=== PATIENT | female | born 1940 | race Caucasian/White ===

== ENCOUNTER 2018-01-09 08:55 | Emergency (ER) | payer MEDICARE ==
[~2018-01-09] VITALS: Ht 157.5 cm; Wt 97.1 kg
[~2018-01-09 08:55] MED LIST: INDOMETHACIN50 MG PO; SYNTHROID88 MCG PO
[2018-01-09] MEDS ORDERED: ONDANSETRON HCL INJ 2 MG/ML VIAL IV STA (09:09)
[2018-01-09] MEDS ORDERED: SODIUM CHLORIDE 0.9% 1000ML 1,000 ML IV SCH (09:15)
[2018-01-09 09:20] LABS: BASOPHILS % 0.2 % (0.0-1.0); EOSINOPHILS # (AUTO) 0.1 (0.0-0.4); EOSINOPHILS % 0.7 % (0.0-6.0); HEMATOCRIT 38.5 % (34.2-44.1); HEMOGLOBIN 13.3 g/dL (12.0-16.0); LYMPHOCYTES % 8.1 % (18.0-39.1); MEAN CORPUSCULAR HEMOGLOBIN 29.3 pg (28-32); MEAN CORPUSCULAR HGB CONC 34.5 g/dL (31-35); MEAN CORPUSCULAR VOLUME 84.8 fL (81-99); MONOCYTES % 8.1 % (4.4-11.3); NEUTROPHILS # (AUTO) 10.3 (2.1-6.9); NEUTROPHILS % 82.3 % (38.7-80.0); PLATELET COUNT 476 x10e3/uL (140-360); RED BLOOD COUNT 4.54 x10e6/uL (3.6-5.1); RED CELL DISTRIBUTION WIDTH 11.8 % (11.7-14.4)
[2018-01-09 09:46] LABS: ALBUMIN 3.3 g/dL (3.5-5.0); ALBUMIN/GLOBULIN RATIO 0.8 (0.8-2.0); ANION GAP 17.5 mmol/L (8-16); CALCIUM 9.7 mg/dL (8.4-10.2); CREATININE, SERUM 1.76 mg/dL (0.57-1.11); POTASSIUM 3.5 mmol/L (3.5-5.1)
[2018-01-09 10:21] LABS: CLARITY,URINE SL CLOUDY (CLEAR); COLOR,URINE YELLOW (YELLOW); LEUKOCYTE ESTERASE ,URINE TRACE (NEGATIVE); NITRITE,URINE NEGATIVE (NEGATIVE); PROTEIN,URINE DIPSTICK 1+ (NEGATIVE)
[2018-01-09 10:22] LABS: BILIRUBIN,URINE 1+ (NEGATIVE); KETONES,URINE NEGATIVE (NEGATIVE); URINE UROBILINOGEN 0.2 mg/dL (0.2 - 1)
[2018-01-09 10:42] LABS: BACTERIA,URINE MODERATE /HPF; RBC,URINE 0-5 /HPF (0-5)
[2018-01-09 10:43] LABS: EPITHELIAL CELLS,URINE FEW /LPF; TRANSITIONAL EPI CELLS,URINE FEW
[2018-01-09 10:44] LABS: MUCUS,URINE FEW (RARE)
[2018-01-09 11:51] VITALS: BP 146/49
== END 2018-01-09 12:05 | disposition home or self-care (01) ==
LOC: ER 08:55
DX: R19.7 Diarrhea, unspecified (principal); R11.0 Nausea; R10.9 Unspecified abdominal pain; N30.90 Cystitis, unspecified without hematuria; E03.9 Hypothyroidism, unspecified; K51.90 Ulcerative colitis, unspecified, without complications
CPT/HCPCS: 36415; 80053; 81001; 82550; 82553; 83605; 83690; 84443; 84484; 85025; 93005; 99284; J2405; J7030

== ENCOUNTER → 2018-04-30 | Day surgery (SDC) | payer MEDICARE ==
[~2018-04-30] MED LIST changes: +APRISO0.375 GM PO; +ASPIR 8181 MG PO; +FENTANYL CITRATE/PF 100MCG/2 ML INJ ONE; +HYOSCYAMINE SULFATE 0.5 MG/ML INJ ONE; +MIDAZOLAM HCL 2 MG/2 ML VIAL ONE; +PROPOFOL IV EMULSION 10 MG/ML 50 ML VIAL ONE
--- OUTSIDE RECORDS SUMMARY | 2018-04-30 06:58 | XMS REPORT | Clinical Summary ---
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 wednesdays01/17/2018 Discontinued levothyroxine (SYNTHROID, Take 75 mcg 0 LEVOXYL) 75 mcg tablet by mouth every morning. 04/17/2018 gabapentin (NEURONTIN) Take 1 90 capsule 2 100 mg capsule capsule (100 8 mg total) by mouth 3 (three) times a day for 90 days. 02/16/2018 promethazine (PHENERGAN) Take 1 tablet 30 tablet 0 12.5 MG tablet (12.5 mg 8 total) by mouth every 6 (six) hours as needed for nausea or vomiting for up to 30 days. 01/23/2018 valACYclovir (VALTREX) Take 1 tablet 12 tablet 0 1000 MG tablet (1,000 mg 8 total) by mouth 2 (two) times a day for 6 days. 01/24/2018 HYDROcodone-acetaminophen Take 1 tablet 20 tablet 0 (NORCO) 5-325 mg per by mouth 8 tablet every 6 (six) hours as needed for severe pain for up to 7 days. Max Daily Amount: 4 tablets 02/17/2018 aspirin (ECOTRIN) 81 MG Take 1 tablet 30 tablet 0 enteric coated tablet (81 mg total) 8 by mouth daily for 30 days. 04/17/2018 pantoprazole (PROTONIX) Take 1 tablet 60 tablet 2 40 MG EC tablet (40 mg total) 8 by mouth 2 (two) times a day for 90 days. 04/18/2018 levothyroxine (SYNTHROID, Take 1 tablet 30 tablet 2 LEVOXYL) 75 mcg tablet (75 mcg 8 total) by mouth every morning for 90 days. 02/02/2018 amoxicillin (AMOXIL) 500 Take 2 56 capsule 0 MG capsuleIndications: capsules 8 Helicobacter pylori (H. (1,000 mg pylori) infection total) by mouth 2 (two) times a day for 14 days. 02/02/2018 clarithromycin (BIAXIN) Take 1 tablet 28 tablet 0 500 MG tabletIndications: (500 mg 8 Helicobacter pylori (H. total) by pylori) infection mouth 2 (two) times a day for 14 days. 02/16/2018 omeprazole (PriLOSEC) 20 Take 1 28 capsule 0 MG capsuleIndications: capsule (20 8 Helicobacter pylori (H. mg total) by pylori) infection mouth daily for 28 days. Active Problems Problem Noted Date Chest pain 01/15/2018 Encounters Care Team Description Date Type Specialty Mickie Farley MA 02/18/2018 Telephone Gastroenterology Rodriguez Perez MD Ulcerative colitis with complication, unspecified location 02/12/2018 Hospital Radiology Encounter Rodriguez Perez MD Ulcerative colitis with complication, unspecified location (Primary Dx) 02/10/2018 Office Visit Gastroenterology Thien Mercado MD Renal pain 02/02/2018 Hospital Radiology Encounter Thien Mercado MD Renal pain (Primary Dx) 01/27/2018 Transcribe Access Orders Zeyad Burrows, Acute renal insufficiency (Primary Dx); Dehydration 01/26/2018 Emergency Emergency Medicine - 01/27/2018 Lenore Gibson LPN 01/22/2018 Telephone Gastroenterology Vj Page MA Helicobacter pylori (H. pylori) infection (Primary Dx) 01/19/2018 Telephone Gastroenterology Von Huggins MD 01/16/2018 Anesthesia Gastroenterology Event Rodriguez Perez MD EGD WITH BIOPSY 01/16/2018 Surgery Gastroenterology Edna Booker MD Bui, Mar Elias MD Chest pain, unspecified type (Primary Dx); Herpes zoster with complication; Diarrhea, unspecified type; Herpes zoster without complication 01/15/2018 Emergency General Surgery - 01/17/2018 after 04/29/2017 Family History Medical History Relation Name Comments No Known Problems Father No Known Problems Mother Relation Name Status Comments Father Mother Social History Date Tobacco Use Types Packs/Day Years Used Never Smoker Smokeless Tobacco: Never Used Alcohol Use Drinks/Week oz/Week Comments No Sex Assigned at Date Recorded Not on file Industry Job Start Date Occupation Not on file Not on file Not on file Travel End Travel History Travel Start No recent travel history available. Last Filed Vital Signs Time Taken Vital Sign Reading 02/10/2018 3:42 PM CDT Blood Pressure 136/82 02/10/2018 3:42 PM CDT Pulse 91 02/10/2018 3:42 PM CDT Temperature 36.8 C (98.2 F) 02/10/2018 3:42 PM CDT Respiratory Rate 12 01/27/2018 1:00 AM CDT Oxygen Saturation 96% - Inhaled Oxygen - Concentration 02/10/2018 3:42 PM CDT Weight 84.9 kg (187 lb 3.2 oz) 02/10/2018 3:42 PM CDT Height 157.5 cm (5' 2") 02/10/2018 3:42 PM CDT Body Mass Index 34.24 Plan of Treatment Health Maintenance Due Date Last Done Comments SHINGRIX VACCINE (1 of 2) 12/27/1991 ZOSTER VACCINE 2001 PNEUMOCOCCAL 2006 POLYSACCHARIDE VACCINE AGE 65 AND OVER PNEUMOCOCCAL-13 2006 INFLUENZA VACCINE 01/14/2018 Procedures Comments Procedure Name Priority Date/Time Associated Diagnosis CT ABDOMEN PELVIS WO Routine 02/02/2018 Renal pain CONTRAST 9:59 AM CDT URINALYSIS SCREEN AND Routine 01/26/2018 MICROSCOPY, WITH REFLEX 9:40 PM CDT TO CULTURE URINE CULTURE Routine 01/26/2018 9:40 PM CDT ZZESTIMATED GFR STAT 01/26/2018 8:40 PM CDT COMPREHENSIVE METABOLIC STAT 01/26/2018 PANEL 8:40 PM CDT HC COMPLETE BLD COUNT Routine 01/26/2018 W/AUTO DIFF 8:40 PM CDT ZZESTIMATED GFR Routine 01/17/2018 5:18 AM CDT HEPATIC FUNCTION PANEL Routine 01/17/2018 5:18 AM CDT BASIC METABOLIC PANEL Routine 01/17/2018 5:18 AM CDT HC COMPLETE BLD COUNT Routine 01/17/2018 W/AUTO DIFF 5:18 AM CDT ECHOCARDIOGRAM 2D Routine 01/16/2018 COMPLETE W MMODE SPECTRAL 1:50 PM CDT COLOR DOPPLER ([id number]) SURGICAL PATHOLOGY Routine 01/16/2018 REQUEST 1:27 PM CDT URINE DRUGS OF ABUSE STAT 01/16/2018 SCREEN 11:30 AM CDT EGD WITH BIOPSY 01/16/2018 Chest pain, unspecified 10:17 AM CDT type ZZESTIMATED GFR Routine 01/16/2018 6:14 AM CDT HC COMPLETE BLD COUNT Routine 01/16/2018 W/AUTO DIFF 6:14 AM CDT BASIC METABOLIC PANEL Routine 01/16/2018 6:14 AM CDT HEPATIC FUNCTION PANEL Routine 01/16/2018 6:14 AM CDT LIPID PANEL Routine 01/16/2018 6:14 AM CDT THYROID STIMULATING Routine 01/16/2018 HORMONE 6:14 AM CDT T4, FREE Routine 01/16/2018 6:14 AM CDT T3, FREE Routine 01/16/2018 6:14 AM CDT NM LUNG VENTILATION STAT 01/16/2018 PERFUSION 12:19 AM CDT D-DIMER STAT 01/15/2018 3:00 PM CDT TROPONIN Timed 01/15/2018 3:00 PM CDT CLOSTRIDIUM DIFFICILE Routine 01/15/2018 TOXIN 11:03 AM CDT XR CHEST 1 VW PORTABLE STAT 01/15/2018 10:27 AM CDT ECG ED PRELIMINARY Routine 01/15/2018 INTERPRETATION 10:27 AM CDT MANUAL DIFFERENTIAL STAT 01/15/2018 10:23 AM CDT B NATRIURETIC PEPTIDE STAT 01/15/2018 10:23 AM CDT TROPONIN STAT 01/15/2018 10:23 AM CDT ZZESTIMATED GFR STAT 01/15/2018 10:23 AM CDT B NATRIURETIC PEPTIDE STAT 01/15/2018 10:23 AM CDT COMPREHENSIVE METABOLIC STAT 01/15/2018 PANEL 10:23 AM CDT CBC WITH PLATELET AND STAT 01/15/2018 DIFFERENTIAL 10:23 AM CDT ECG 12-LEAD STAT 01/15/2018 10:04 AM CDT after 04/29/2017 Results * CT Abdomen Pelvis Wo Contrast (02/02/2018 9:59 AM CDT) Narrative Performed At EXAMINATION:CT ABDOMEN PELVIS WO CONTRAST [facility] CLINICAL HISTORY:N23 Unspecified renal colic, N23 TECHNIQUE:Multiple axial CT images of the abdomen and pelvis are obtained without the use of intravenous contrast. Coronal and sagittal 3-D reconstructions are obtained. CT scans are performed using radiation dose reduction techniques.Technical factors are evaluated and adjusted to ensure appropriate moderation of exposure.Automated dose management technology is applied to adjust radiation exposure while achieving a diagnostic quality image. COMPARISON:January 2012 FINDINGS: Abdomen: The evaluation of the solid organs is limited without the use of intravenous contrast. The visualized lower lung zones are clear. The gallbladder has been removed.. The CT appearance of the liver, spleen, pancreas and adrenal glands is unremarkable . The abdominal aorta has no aneurysmal dilatation. There is no retroperitoneal adenopathy. The right kidney does not have any stones or any hydronephrosis. The left kidney does not have any stones or any hydronephrosis. CT Pelvis: There is no evidence of any pneumoperitoneum. The stomach demonstrates surgical clips adjacent to the stomach which may represent prior gastric surgery. There is no gastric wall thickening. The evaluation of the GI tract is limited without any oral contrast. The colon demonstrates some bowel wall thickening seen within the transverse colon, sigmoid colon ascending colon and proximal descending colon. This raises the possibility of colitis. Small bowel is not dilated. There is no free fluid seen within the abdomen or the pelvis. The bladder does not demonstrate any masses. There is no inguinal hernia present. IMPRESSION: 1. There are no renal, ureteral or bladder stones. A Guerrero catheter is present within the bladder. 2. There are some mild bowel wall thickening seen within the ascending, transverse and descending colon. This finding may represent possible colitis. Clinical is recommended. 3. Gallbladder has been previously removed. There are surgical clips seen in the region of the stomach. 4. The abdomen and pelvis do not demonstrate any masses. [facility]-[id number] Procedure Note [facility], Radiology Results Incoming - 02/02/2018 10:13 AM CDT EXAMINATION: CT ABDOMEN PELVIS WO CONTRAST CLINICAL HISTORY: N23 Unspecified renal colic, N23 TECHNIQUE: Multiple axial CT images of the abdomen and pelvis are obtained without the use of intravenous contrast. Coronal and sagittal 3-D reconstructions are obtained. CT scans are performed using radiation dose reduction techniques. Technical factors are evaluated and adjusted to ensure appropriate moderation of exposure. Automated dose management technology is applied to adjust radiation exposure while achieving a diagnostic quality image. COMPARISON: January 2012 FINDINGS: Abdomen: The evaluation of the solid organs is limited without the use of intravenous contrast. The visualized lower lung zones are clear. The gallbladder has been removed.. The CT appearance of the liver, spleen, pancreas and adrenal glands is unremarkable . The abdominal aorta has no aneurysmal dilatation. There is no retroperitoneal adenopathy. The right kidney does not have any stones or any hydronephrosis. The left kidney does not have any stones or any hydronephrosis. CT Pelvis: There is no evidence of any pneumoperitoneum. The stomach demonstrates surgical clips adjacent to the stomach which may represent prior gastric surgery. There is no gastric wall thickening. The evaluation of the GI tract is limited without any oral contrast. The colon demonstrates some bowel wall thickening seen within the transverse colon, sigmoid colon ascending colon and proximal descending colon. This raises the possibility of colitis. Small bowel is not dilated. There is no free fluid seen within the abdomen or the pelvis. The bladder does not demonstrate any masses. There is no inguinal hernia present. IMPRESSION: 1. There are no renal, ureteral or bladder stones. A Guerrero catheter is present within the bladder. 2. There are some mild bowel wall thickening seen within the ascending, transverse and descending colon. This finding may represent possible colitis. Clinical is recommended. 3. Gallbladder has been previously removed. There are surgical clips seen in the region of the stomach. 4. The abdomen and pelvis do not demonstrate any masses. [facility]-[id number] Performing Organization Address City/State/Zipcode Phone Number [place] [address] [place] [address] * Urinalysis screen and microscopy, with reflex to culture (01/26/2018 9:40 PM CDT) Specimen site Clean catch [facility] Color, UA Yellow [facility] MEDICINE Appearance, UA Clear [facility] MEDICINE Specific gravity, UA 1.025 1.001 - 1.035 [facility] MEDICINE pH, UA 5.0 5.0 - 8.5 [facility] MEDICINE Protein, UA 2+ (A) Negative [facility] MEDICINE Glucose, UA Negative Negative [facility] MEDICINE Ketones, UA Trace (A) Negative [facility] MEDICINE Bilirubin, UA Negative Negative [facility] MEDICINE Blood, UA Negative Negative [facility] MEDICINE Nitrite, UA Negative Negative [facility] MEDICINE Urobilinogen, UA 2.0 (A) <2.0 [facility] MEDICINE Leukocyte esterase, UA Negative Negative [facility] MEDICINE Epithelial cells, UA Few /HPF [facility]OMIC MEDICINE Round epithelial cells, Few 0 - 1 /HPF [facility] UA PATHOLOGY AND GENOMIC MEDICINE WBC, UA 4 0 - 5 /HPF [facility]OMIC MEDICINE RBC, UA 1 0 - 5 /HPF [facility]OMIC MEDICINE Bacteria, UA None seen None seen [facility]OMIC MEDICINE Yeast, UA None seen [facility]OM[facility] MEDICINE Yeast with pseudohyphae, None seen [facility] UA PATHOLOGY AND GENOMIC MEDICINE Hyaline casts, UA 26 /LPF [facility] MEDICINE Specimen Urine Performing Organization Address City/State/Zipcode Phone Number [address] [place] [address] PATHOLOGY AND GENOMIC MEDICINE * Urine culture (01/26/2018 9:40 PM CDT) Urine culture SEE COMMENTComment: [facility] Bacteriuria screen negative. PATHOLOGY AND GENOMIC MEDICINE Specimen Urine Performing Organization Address City/[facility]/Zipcode Phone Number [address] [place] [id number] PATHOLOGY AND GENOMIC MEDICINE * Estimated GFR (01/26/2018 8:40 PM CDT) Only the most recent of 4 results within the time period is included. GFR Non Af Amer 34 (A) mL/min/1.73 m2 [facility]OMIC MEDICINE GFR Af Amer 41 (A) mL/min/1.73 m2 [facility] Comment: PATHOLOGY AND Chronic kidney disease: <60 GENOMIC MEDICINE mL/min/1.73m2 Kidney failure: <15 mL/min/1.73m2 The estimated GFR is calculated from the IDMS-traceable Modification of Diet in Renal Disease Equation. The accuracy of the calculation is poor when the creatinine is normal. Calculated values >90 mL/min/1.73m2 are not reported. This equation has not been validated in children (<18 years), women, the elderly (>70 years), or ethnic groups other than Caucasians and Americans. Specimen Plasma specimen Performing Organization Address City/State/Zipcode Phone Number [facility] [address] [place] [address] PATHOLOGY AND GENOMIC MEDICINE * CBC with platelet and differential (01/26/2018 8:40 PM CDT) Only the most recent of 4 results within the time period is included. WBC 9.5 4.2 - 11.0 k/uL [facility]OMIC MEDICINE RBC 3.69 (L) 4.04 - 5.86 m/uL [facility]OMIC MEDICINE HGB 10.6 (L) 11.5 - 15.3 g/dL [facility]OMIC MEDICINE HCT 33.1 (L) 34.0 - 45.0 % [facility]OMIC MEDICINE MCV 89.7 80.0 - 98.0 fL [facility]OMIC MEDICINE MCH 28.7 27.0 - 34.0 pg [facility] GENOMIC MEDICINE MCHC 32.0 31.5 - 36.5 g/dL [facility] GENOMIC MEDICINE RDW - SD 39.4 37.0 - 51.0 fL [facility]OMIC MEDICINE MPV 8.4 7.4 - 10.4 fL [facility]OMIC MEDICINE Platelet count 555 (H) 150 - 400 k/uL [facility]OMIC MEDICINE Nucleated RBC 0.00 /100 WBC [facility] GENOMIC MEDICINE Neutrophils 69.1 (H) 36.0 - 66.0 % [facility]OMIC MEDICINE Lymphocytes 19.0 (L) 24.0 - 44.0 % [facility]OMIC MEDICINE Monocytes 9.2 (H) 0.0 - 6.0 % [facility]OMIC MEDICINE Eosinophils 2.1 0.0 - 6.0 % [facility]OMIC MEDICINE Basophils 0.2 0.0 - 1.2 % [facility] OF PATHOLOGY AND GENOMIC MEDICINE Immature granulocytes 0.4 0.0 - 1.0 % [facility] AND GENOMIC MEDICINE Specimen Blood Performing Organization Address City/State/Zipcode Phone Number [place] [phone] [place] [address] PATHOLOGY AND GENOMIC MEDICINE * Comprehensive metabolic panel (01/26/2018 8:40 PM CDT) Only the most recent of 2 results within the time period is included. Sodium 139 135 - 150 mEq/L [facility]OMIC MEDICINE Potassium 3.5 3.5 - 5.0 mEq/L [facility] GENOMIC MEDICINE Chloride 99 98 - 112 mEq/L [facility]OMIC MEDICINE CO2 26 24 - 31 mmol/L [facility]Y AND GENOMIC MEDICINE Anion gap 14@ANIO 7 - 15 mEq/L [facility]Y [facility] GENOMIC MEDICINE BUN 10 7 - 18 mg/dL [facility] DEPARTMENT OF PATHOLOGY AND GENOMIC MEDICINE Creatinine 1.50 (H) 0.50 - 0.90 mg/dL [facility]OMIC MEDICINE Glucose 114 (H) 65 - 100 mg/dL [facility] GENOMIC MEDICINE Calcium 9.0 8.8 - 10.2 mg/dL [facility]OMIC MEDICINE Protein 6.7 6.3 - 8.3 g/dL [facility] GENOMIC MEDICINE Albumin 2.4 (L) 3.5 - 5.0 g/dL [facility]Y AND GENOMIC MEDICINE A/G ratio 0.6 (L) 0.7 - 3.8 [facility]OMIC MEDICINE Alkaline phosphatase 57 0 - 104 U/L [facility] GENOMIC MEDICINE AST 19 10 - 35 U/L [facility] GENOMIC MEDICINE ALT 13 5 - 50 U/L [facility]Y [facility] GENOMIC MEDICINE Total bilirubin 0.3 0.2 - 1.2 mg/dL [facility]Y AND GENOMIC MEDICINE Specimen Plasma specimen Performing Organization Address [facility] [place] [address] PATHOLOGY [facility] * Hepatic function panel (01/17/2018 5:18 AM CDT) Only the most recent of 2 results within the time period is included. Albumin 2.2 (L) 3.5 - 5.0 g/dL [facility] GENOMIC MEDICINE Total bilirubin <0.3 0.2 - 1.2 mg/dL [facility]Y AND GENOMIC MEDICINE Bilirubin direct <0.2 0.0 - 0.4 mg/dL [facility]Y AND GENOMIC MEDICINE Alkaline phosphatase 59 0 - 104 U/L [facility]Y AND GENOMIC MEDICINE Protein 5.8 (L) 6.3 - 8.3 g/dL [facility] GENOMIC MEDICINE ALT 7 5 - 50 U/L [facility]Y AND GENOMIC MEDICINE AST 13 10 - 35 U/L [facility] PATHOLOGY AND GENOMIC MEDICINE Specimen Plasma specimen Performing Organization Address City/[facility] [place] [address] PATHOLOGY [facility] * Basic metabolic panel (01/17/2018 5:18 AM CDT) Only the most recent of 2 results within the time period is included. Sodium 139 135 - 150 mEq/L [facility]OMIC MEDICINE Potassium 3.2 (L) 3.5 - 5.0 mEq/L [facility] GENOMIC MEDICINE Chloride 102 98 - 112 mEq/L [facility]OMIC MEDICINE CO2 26 24 - 31 mmol/L [facility]OLOGY AND GENOMIC MEDICINE Anion gap 11@ANIO 7 - 15 mEq/L [facility] PATHOLOGY AND GENOMIC MEDICINE BUN 12 7 - 18 mg/dL [facility]Y [facility]OMIC MEDICINE Creatinine 1.30 (H) 0.50 - 0.90 mg/dL [facility]OLOGY AND GENOMIC MEDICINE Glucose 106 (H) 65 - 100 mg/dL [facility]OLOGY AND GENOMIC MEDICINE Calcium 8.5 (L) 8.8 - 10.2 mg/dL [facility] OF PATHOLOGY AND GENOMIC MEDICINE Specimen Plasma specimen Performing Organization Address City/State/Zipcode Phone Number [place] [phone] [place] [address] PATHOLOGY AND GENOMIC MEDICINE * Echocardiogram complete w contrast and 3D if needed (01/16/2018 1:50 PM CDT) Velocity Ratio (V1/V2) 0.94 m/s [facility] IVS,d 0.90 cm [facility] EF 59.86 % [facility] LVPWD,d 0.87 cm [facility] AoV Mean PG 6.63 mmHg [facility] AV LVOT peak gradient 11.59 mmHg [facility] MV mean gradient 1.22 mmHg [facility] E/A ratio 0.62 [facility] E wave decelartion time 184.38 msec [facility] LVOT Diam,S 1.85 cm [facility] LVOT area 2.69 cm2 [facility] LVOT Vmax 1.70 m/s [facility] LVOT VTI 0.31 m [facility] AoV Peak PG 13.08 mmHg [facility] MV Peak E Ajay 0.66 m/s [facility] MV Peak A Ajay 1.06 m/s [facility] Ao Root Diameter 2.65 cm [facility] AoV Area, Vmax 2.52 cm2 [facility] AoV Area, VTI 3.16 cm2 [facility] AoV Vmax 1.81 m/s [facility] Left Atrium Dimension 3.45 cm [facility] Anterior LV,d 4.51 cm [facility] LV,s 3.08 cm [facility] TR Vpeak 2.42 mm/s [facility] MV E A ratio 0.63 mmHg [facility] TR pk grad 23.41 mmHg [facility] MR peak grad 4.54 mmHg [facility] Ao Root Diameter 2.65 cm [facility] AR Press Half Time 477.42 ms [facility] LV SYS VOL 37.38 ml [facility] LV MERIDA VOL 93.13 ml [facility] LA Vol MOD A4C 35.57 ml [facility] LV SV Teich 2D 55.76 ml [facility] LVOT CO 5.92 l/min [facility] LVOT HR for LVOT CO 71.74 bpm [facility] MV Vmax 1.06 m [facility] MV VTI Tips 0.20 m [facility] AoV Vmn 1.24 [facility] AR slope 2.39 [facility] Ar Vmax 3.93 [facility] IVS s 2D 1.09 [facility] AoV VTI 0.26 m [facility] LVOT Vmn 1.40 [facility] LVOT mean grad 8.25 mmHg [facility] AR DT 1,646.29 msec [facility] AR pk grad 61.81 mmHg [facility] LVPW s PLAX 1.07 cm [facility] MV Decel slope 3.60 m/s2 [facility] Narrative Performed At [facility] The left ventricle chamber size is normal. Left Ventricular ejection fraction is 55 - 60%. Spectral Doppler shows impaired relaxation pattern of left ventricular diastolic filling. ValveMild aortic regurgitation Performing Organization Address City/[facility]/Zipcode Phone Number [facility] [address] [place] [address] * Surgical pathology request (01/16/2018 1:27 PM CDT) [facility] [facility]OMIC MEDICINE Surgical pathology report See link below for PDF Lab [facility] Report PATHOLOGY AND GENOMIC MEDICINE Result status This is Final Report to [facility] [id number] PATHOLOGY AND GENOMIC MEDICINE Performing Organization Address City/[facility]/Zipcode Phone Number [facility] [address] [place] [address] PATHOLOGY AND GENOMIC MEDICINE * Urine drugs of abuse screen (01/16/2018 11:30 AM CDT) Amphetamine screen, urine Negative [facility] GENOMIC MEDICINE Barbiturate screen, urine Negative [facility]Y [facility] GENOMIC MEDICINE Benzodiazepine screen, Negative [facility] urine PATHOLOGY AND GENOMIC MEDICINE Cocaine screen, urine Negative [facility] GENOMIC MEDICINE Methadone screen, urine Negative [facility] GENOMIC MEDICINE Opiates screen, urine Positive (A) [facility] GENOMIC MEDICINE Phencyclidine screen, Negative [facility] urine PATHOLOGY AND GENOMIC MEDICINE Cannabinoid screen, urine Negative [facility] Comment: PATHOLOGY AND Drug screen minimum [facility] concentration of detectability Amphetamines 1000 ng/mL Methamphetamines 1000 ng/mL Barbiturates 300 ng/mL Benzodiazepines 300 ng/mL Cocaine 300 ng/mL Methadone 300 ng/mL Opiates 300 ng/mL Phencyclidine 25 ng/mL Cannabinoids 50 ng/mL Tricyclics 1000 ng/mL Negative test results indicates presumptive evidence of lack of clinically significant drug concentration in this urine specimen. Positive test results are presumptive evidence of clinically significant drug concentration in this urine specimen. Testing performed for medical purposes only. Specimen Urine Performing Organization Address [facility] [place] [address] PATHOLOGY AND New [facility] MEDICINE * T3, free (01/16/2018 6:14 AM CDT) T3, free 1.86 (L) 2.18 - 3.98 pmol/L [facility] PATHOLOGY AND New [facility] MEDICINE Specimen Plasma specimen Performing Organization Address [facility] [place] [address] PATHOLOGY AND GENOMIC MEDICINE * Thyroid stimulating hormone (01/16/2018 6:14 AM CDT) TSH 3.58 0.27 - 4.20 uIU/mL [facility] PATHOLOGY AND GENOMIC MEDICINE Specimen Plasma specimen Performing Organization Address [facility] [place] [address] PATHOLOGY AND GENOMIC MEDICINE * T4, free (01/16/2018 6:14 AM CDT) T4, free 1.50 0.90 - 1.70 ng/dL [facility]Y AND GENOMIC MEDICINE Specimen Plasma specimen Performing Organization Address [facility]/Zipcode Phone Number [facility] [address] [place] [address] PATHOLOGY AND GENOMIC MEDICINE * Lipid panel (01/16/2018 6:14 AM CDT) Cholesterol 115 0 - 199 mg/dL [facility]Y AND GENOMIC MEDICINE Triglycerides 85 0 - 149 mg/dL [facility] PATHOLOGY AND GENOMIC MEDICINE HDL cholesterol 46 40 - 9,999 mg/dL [facility] PATHOLOGY AND GENOMIC MEDICINE LDL cholesterol 52Comment: Result obtained by 0 - 99 mg/dL [facility] direct LDL measurement PATHOLOGY AND GENOMIC MEDICINE Lipid panel See below [facility] interpretation Comment: PATHOLOGY AND Total Cholesterol GENOMIC MEDICINE (mg/dL) LDL Cholesterol (mg/dL) <200 Desirable <100 Optimal 200-239Borderline -[id number] 29Near or above optimal >=240High 130-159Borderline- high 160-189High >=190Very high HDL Cholesterol (mg/dL) Triglycerides (mg/dL) <40Low <150 Normal >=60 High 150-199Borderline- high 200-499High >=500Very high Risk Catergories that modify LDL goals. Risk Catergories LDL goal (mg/dL) CHD and CHD risk equivalent <100 (10-year risk >20%) Multiple (2+) risk factors <130 (10-year risk=<20%) 0-1 risk factors <160 (<10-year risk) Defining levels of lipids in metabolic syndrome Triglycerides >=150 mg/dL HDL Cholesterol Men <40 mg/dL Women <50 mg/dL Non-HDL cholesterol is a second target for therapy in persons with high triglycerides (>=200 mg/dL) Specimen Plasma specimen Performing Organization Address [facility] Phone Number [facility] [address] [place] [address] PATHOLOGY AND GENOMIC MEDICINE * NM Lung Ventilation Perfusion (01/16/2018 12:19 AM CDT) Narrative Performed At PROCEDURE:NM LUNG VENTILATION PERFUSION [facility] INDICATION:Shortness of breath. COMPARISON:CXR dated 01/15/18. TECHNIQUE:Planar ventilation images were acquired after the inhalation of 15 mCi of Xe-133 gas. Planar perfusion images were acquired after the IV administration of 5 mCi of Tc-99m MAA. FINDINGS:Ventilation images demonstrate decreased ventilation to the lung periphery. Washout images demonstrate mild gas trapping.Perfusion images demonstrate decreased perfusion to the lung periphery, matching the ventilation images.No mismatched defects. IMPRESSION: 1.Low probability for PE. 2.COPD. [facility]-[id number] Procedure Note Interface, Radiology Results Incoming - 01/16/2018 12:50 AM CDT PROCEDURE: NM LUNG VENTILATION PERFUSION INDICATION: Shortness of breath. COMPARISON: CXR dated 01/15/18. TECHNIQUE: Planar ventilation images were acquired after the inhalation of 15 mCi of Xe-133 gas. Planar perfusion images were acquired after the IV administration of 5 mCi of Tc-99m MAA. FINDINGS: Ventilation images demonstrate decreased ventilation to the lung periphery. Washout images demonstrate mild gas trapping. Perfusion images demonstrate decreased perfusion to the lung periphery, matching the ventilation images. No mismatched defects. IMPRESSION: 1. Low probability for PE. 2. COPD. [facility]-[id number] Performing Organization Address City/State/Zipcode Phone Number [facility] [address] [place] [address] * Troponin (01/15/2018 3:00 PM CDT) Only the most recent of 2 results within the time period is included. Troponin <0.30 0.00 - 0.30 ng/mL [facility] Comment: PATHOLOGY AND 0.11 - 1.49 GENOMIC MEDICINE ng/mlMay indicate increased risk of acute coronary syndrome. >=1.5 ng/ml Consistent with acute myocardial infarction. The diagnostic value of a single normal or non-diagnostic result is questionable.Serial samples at 2-6 hour intervals are required to rule out acute myocardial injury. Specimen Plasma specimen Performing Organization Address City/State/Zipcode Phone Number [facility] [address] [facility] [place] [address] PATHOLOGY AND GENOMIC MEDICINE * D-dimer (01/15/2018 3:00 PM CDT) D-dimer 1.07 (H) 0.00 - 0.40 ug/mL FEU [facility] Comment: PATHOLOGY AND Units are ug/ml Fibrinogen GENOMIC MEDICINE Equivalent Unit. When combined with low clinical probability, D-dimer results of less than 0.5 ug/ml FEU have a good negativepredictive value in excluding PE or DVT. For D-dimer results greater than 0.5ug/ml FEU further testing is indicated if PE or DVT is suspectedclinically. Elevated D-dimer results have been reported in DVT, PE, and DIC cases and may indicate the presence of a clot. D-dimer results may be elevated due to old age, , inflammatory diseases, trauma, post-operative states, sepsis, and malignancies. Specimen Blood Performing Organization Address City/State/Zipcode Phone Number [facility] [address] [place] [address] PATHOLOGY AND GENOMIC MEDICINE * C difficile toxin (01/15/2018 11:03 AM CDT) Clostridium difficile No Clostridium difficle toxin [facility] DEPARTMENT OF toxin present PATHOLOGY AND Comment: GENOMIC MEDICINE Specimen Information Specimen Source: Stool Specimen Site: Nonpreserved Specimen Stool - Nonpreserved Performing Organization Address City/State/Zipcode Phone Number [facility] DEPARTMENT OF [address] [place] [address] PATHOLOGY AND GENOMIC MEDICINE * XR Chest 1 Vw Portable (01/15/2018 10:27 AM CDT) Narrative Performed At EXAMINATION:XR CHEST 1 VW PORTABLE [facility] CLINICAL HISTORY:sob COMPARISON:June 26, 2007 IMPRESSION: 1.Heart size within normal limits. 2.No infiltrates or effusions are seen. Vessels are not congested. [id number] Procedure Note Hm Interface, Radiology Results Incoming - 01/15/2018 10:31 AM CDT EXAMINATION: XR CHEST 1 VW PORTABLE CLINICAL HISTORY: sob COMPARISON: June 26, 2007 IMPRESSION: 1. Heart size within normal limits. 2. No infiltrates or effusions are seen. Vessels are not congested. [id number] Performing Organization Address City/[facility]/Zipcode Phone Number [facility] [address] [place] [address] * ECG ED Preliminary Interpretation - NOT AN ORDER (01/15/2018 10:27 AM CDT) Narrative Performed At Edna Booker MD 01/16/20188:40 AM ECG ED Preliminary Interpretation - Not an Order Performed by: EDNA BOOKER Authorized by: EDNA BOOKER ECG reviewed by ED Physician in the absence of a mine wedge sawyer: yes Interpretation: Interpretation: normal Rate: ECG rate:71 ECG rate assessment: normal Rhythm: Rhythm: sinus rhythm Ectopy: Ectopy: none QRS: QRS axis:Normal QRS intervals:Normal Conduction: Conduction: normal ST segments: ST segments:Normal T waves: T waves: normal Other findings: Other findings: LVH * Manual differential (01/15/2018 10:23 AM CDT) Manual differential PERFORMED [facility]Y AND GENOMIC MEDICINE Neutrophils 78.0 (H) 36.0 - 66.0 % [facility] PATHOLOGY AND GENOMIC MEDICINE Lymphocytes 11.0 (L) 24.0 - 44.0 % [facility] PATHOLOGY AND GENOMIC MEDICINE Monocytes 10.0 (H) 0.0 - 6.0 % [facility] PATHOLOGY AND GENOMIC MEDICINE Eosinophils 1.0 0.0 - 6.0 % [facility] PATHOLOGY AND GENOMIC MEDICINE Basophils 0.0 0.0 - 1.2 % [facility] PATHOLOGY AND GENOMIC MEDICINE Metamyelocytes 0 0 - 1 % [facility] AND GENOMIC MEDICINE Promyelocytes 0 0 - 1 % [facility] PATHOLOGY AND GENOMIC MEDICINE Platelet slide review Increased (A) [facility] Comment: PATHOLOGY AND Corrected result; previously GENOMIC MEDICINE reported as Chao adequate on 01/15/2018 at 11:16 by RXR Performing Organization Address City/[facility] [place] [address] PATHOLOGY AND GENOMIC MEDICINE * B natriuretic peptide (01/15/2018 10:23 AM CDT) Only the most recent of 2 results within the time period is included. BNP 93 0 - 100 pg/mL [facility] AND GENOMIC MEDICINE Specimen Blood Performing Organization Address City/[facility] Phone Number [facility] [address] [place] [address] PATHOLOGY AND GENOMIC MEDICINE * ECG 12 lead (01/15/2018 10:04 AM CDT) Ventricular rate 71 [facility] Atrial rate 71 [facility] ND interval 116 [facility] QRSD interval 74 [facility] QT interval 376 [facility] QTC interval 408 [facility] P axis 1 40 [facility] QRS axis 1 -3 [facility] T wave axis 0 [facility] EKG impression Normal sinus rhythm-Moderate [facility] voltage criteria for LVH, may be normal variant-Borderline ECG-No previous ECGs available- Performing Organization Address City/[facility]/Zipcode Phone Number [facility] [address] [place] [address] after 04/29/2017 Insurance Payer Benefit Subscriber ID Type Phone Address Plan / Group MEDICARE MEDICARE xxxxxxxxxx Medicare [place], [place] PART A AND B AARP AARP xxxxxxxxxxx Commercial SUPPLEMENT ([place]) [place] [address] Advance Directives Patient has advance care planning documents on file. For more information, tameka العراقي contact: Malick Curtis [address] [place] [address]
[2018-04-30 08:22] LABS: BASOPHILS % 0.3 % (0.0-1.0); EOSINOPHILS # (AUTO) 0.2 (0.0-0.4); EOSINOPHILS % 2.2 % (0.0-6.0); HEMATOCRIT 38.7 % (34.2-44.1); HEMOGLOBIN 12.7 g/dL (12.0-16.0); LYMPHOCYTES # (AUTO) 3.3 (1.0-3.2); LYMPHOCYTES % 34.3 % (18.0-39.1); MEAN CORPUSCULAR HEMOGLOBIN 29.6 pg (28-32); MEAN CORPUSCULAR HGB CONC 32.8 g/dL (31-35); MEAN CORPUSCULAR VOLUME 90.2 fL (81-99); MONOCYTES # (AUTO) 0.7 (0.2-0.8); MONOCYTES % 7.2 % (4.4-11.3); NEUTROPHILS # (AUTO) 5.4 (2.1-6.9); NEUTROPHILS % 55.9 % (38.7-80.0); PLATELET COUNT 461 x10e3/uL (140-360); RED BLOOD COUNT 4.29 x10e6/uL (3.6-5.1); RED CELL DISTRIBUTION WIDTH 12.4 % (11.7-14.4)
[2018-04-30 10:50] VITALS: BP 128/61
--- NOTE | 2018-04-30 11:19 | Operative Report ---
DATE OF PROCEDURE: April 30, 2018 REFERRING PHYSICIAN: Dr. Kylah Reddy PROCEDURE PERFORMED: Flexible sigmoidoscopy with an esophagogastroduodenoscope. INDICATIONS FOR PROCEDURE: Chronic diarrhea. 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 MEDICATION: Patient was done under MAC. Please see anesthesiologist's note. PROCEDURE: With the patient in the left lateral decubitus position, the flexible fiberoptic Olympus gastroscope was inserted into the rectum with ease and advanced all the way to approximately 25 cm from the anal verge. The scope could not be advanced any further due to the presence of a sharp, fixed angulation of the sigmoid colon at that point despite multiple attempts. The scope was then withdrawn slowly. Mucosa overlying the rest of the sigmoid colon revealed some diffuse erythema, edema and friability, and biopsies were obtained. There was an ulcer noted in the rectum. Biopsies were obtained. The scope was then retroflexed into the distal rectum, and a focal area of nodularity was noted in the distal rectum that was biopsied. Also, some internal hemorrhoids were noted, none of which was actively bleeding. The scope was then straightened out. It was subsequently withdrawn. Patient tolerated the procedure well. IMPRESSION 1. Flexible sigmoidoscopy to approximately 25 cm from the anal verge. Could not advance any further even with an esophagogastroduodenoscope due to a sharply angulated and fixed sigmoid colon at that point. 2. Proctosigmoiditis. Biopsies obtained. 3. Focal nodularity, distal rectum, biopsied. 4. Internal hemorrhoids, none actively bleeding. PLAN: Follow up histology. Check IBD panel, CRP and sed rate. Start Canasa suppositories 1,000 mg nightly. Continue Apriso 0.375 four p.o. daily. Job#: [id number] cc:RIGOBERTO REDDY MD
== END | disposition home or self-care (01) ==
LOC: OR 06:56
PROVIDERS: ATTEND Internal Medicine Gastroenterology
DX: K51.30 Ulcerative (chronic) rectosigmoiditis without complications (principal); K64.8 Other hemorrhoids; Z01.810 Encounter for preprocedural cardiovascular examination; Z79.82 Long term (current) use of aspirin; M19.90 Unspecified osteoarthritis, unspecified site; R03.0 Elevated blood-pressure reading, without diagnosis of hypertension; Z88.8 Allergy status to other drugs, medicaments and biological substances
CPT/HCPCS: 36415; 45331; 85025; 85651; 86140; 86256; 86671; 88305; 93005; J1980; J2250; 45378; 45380